=== PATIENT | male | born 1960 | race Caucasian/White ===

== ENCOUNTER 2017-10-25 10:54 | Emergency (ER) ==
[2017-10-25 11:00] VITALS: TEMP 99.1; BMI 29.7
[2017-10-25 11:23] LABS: BASOPHILS # (AUTO) 0.1 K/uL (0-0.2); BASOPHILS % (AUTO) 0.8 % (0.0-3.0); EOSINOPHILS # (AUTO) 0.2 K/ul (0.0-0.7); EOSINOPHILS % (AUTO) 2.1 % (0.0-7.0); HEMATOCRIT 50.4 % (42.0-52.0); HEMOGLOBIN 17.9 g/dl (14.0-18.0); IMMATURE GRANULOCYTE % (AUTO) 0.6 % (0.0-5.0); LYMPHOCYTES # (AUTO) 2.4 K/uL (0.60-3.4); LYMPHOCYTES % (AUTO) 27.6 (10.0-50.0); MEAN CORPUSCULAR HGB CONC 35.5 (31.8-35.4); MEAN CORPUSCULAR VOLUME 90.2 fl (80.0-94.0); MONOCYTES # (AUTO) 0.8 K/uL (0.4-2.0); MONOCYTES % (AUTO) 8.9 (0-10); NEUTROPHILS # (AUTO) 5.2 K/ul (2.0-6.9); PLATELET COUNT 126 10^3/uL (140-440); RED BLOOD COUNT 5.59 10^6/ul (4.70-6.10); WHITE BLOOD COUNT 8.66 K/ul (4.2-10.2)
[2017-10-25 11:38] VITALS: BP 145/74
[2017-10-25 11:38] LABS: PARTIAL THROMBOPLASTIN TIME 24.3 SEC (23.9-40.0); PROTHROMBIN TIME 10.9 SEC (9.3-11.0)
--- NOTE | 2017-10-25 11:44 | CT ---
EXAM: CT head without contrast. HISTORY: Right arm and leg numbness. COMPARISON: None available. TECHNIQUE: Multiple axial images of the brain were obtained from the skull base through the vertex w ithout intravenous contrast. Multiplanar reformats were provided. FINDINGS: There is no intracranial hemorrhage or extraaxial collection. The pantoja-white differentiat ion is maintained without evidence for acute large vascular territory infarction. There are areas of periventricular and subcortical white matter low attenuation. The cortical sulci and basal cisterns are well visualized. There is no hydrocephalus, mass effect, or midline shift. There is near-compl ete opacification of the right maxillary sinus with associated wall thickening. Otherwise, the paran negin sinuses and mastoid air cells are clear. The calvarium is intact. Atherosclerotic calcificatio ns are present. IMPRESSION: 1. No acute intracranial abnormality. 2. Chronic small vessel ischemic changes. 3. Chronic right maxillary sinusitis.
[2017-10-25 11:49] LABS: ALANINE AMINOTRANSFERASE 151 U/L (12-78); ALKALINE PHOSPHATASE 112 U/L (50-136); ANION GAP 16.4; ASPARTATE AMINO TRANSFERASE 87 U/L (15-37); BILIRUBIN,TOTAL 0.5 mg/dL (0.00-1.20); BLOOD UREA NITROGEN 20 mg/dL (7-18); BUN/CREATININE RATIO 24.09; CALCIUM 10.7 mg/dL (8.2-10.2); CARBON DIOXIDE 23 mmol/L (21-32); CHLORIDE 103 mmol/L (98-107); CREATINE KINASE 29 U/L; CREATININE 0.83 mg/dL (0.60-1.10); GLUCOSE 279 mg/dL (70-100); POTASSIUM 4.4 mmol/L (3.5-5.1); SODIUM 138 mmol/L (136-145)
--- NOTE | 2017-10-25 12:22 | ED.PDOC ---
General ED Provider: Dr. NATHALIA THAYER Chief Complaint: Stroke Stated Complaint: stroke Time Seen by Physician: 11:00 (seen with nursing staff) Mode of Arrival: Walk-In Information Source: Patient Exam Limitations: No limitations Primary Care Provider: DEVONTE LOPEZ Nursing and Triage Documentation Reviewed and Agree: Yes (weakness right arm and leg started 1 day ago worse 4 am today) Neurological Complaint Exam - Weakness Complaint/Exam Last Known Well: about 4 am right arm became weal along right leg arm greater than leg Duration: 8 hours Symptoms Are: Still present Timing: Constant (took to asprins each 81 mg) Episodes Lasting: Hours Initial Severity: Moderate Current Severity: Moderate Character: Reports: Weak (right arm and lleg speech and swallowing is preserved ) Aggravating: Reports: None Alleviating: Reports: None Associated Signs and Symptoms: Denies: Nausea, Vomiting, Diaphoresis, Tinnitus, Chest pain, Short of air, Palpitations, Unsteady gait, GI blood loss, Visual changes, Decreased oral intake, Change in medication, Change in diet, OTC meds, Loss of balance Cardiac Risk Factors: Reports: Diabetes CVA Risk Factors: Reports: Diabetes Related Surgical History: Reports: None JVD Present: No Carotid Bruit Present: No Rectal Heme Positive: No Glascow Coma Scale (see protocol): 15 Nystagmus Present: No Gag Reflex Present: Yes Meningeal Signs Positive: No Focal Weakness: Present: RUE, RLE Focal Sensory Loss: Present: None Gait: Abnormal [id number]: Normal Findings Differential Diagnoses: Other (cva) Quality Indicators for Cardiac Chest Pain: EKG in 10min. Quality Indicators for AMI: EKG in 10min. Quality Indicator For Non-Traumatic Chest Pain/Syncope: EKG Performed Review of Systems - Review Of Systems Constitutional: Reports: No symptoms Eyes: Reports: No symptoms Ears, Nose, Mouth, Throat: Reports: No symptoms Respiratory: Reports: No symptoms Cardiac: Reports: No symptoms GI: Reports: No symptoms : Reports: No symptoms Musculoskeletal: Reports: No symptoms Skin: Reports: No symptoms Neurological: Reports: Weakness (right sided upper lower ext) Endocrine: Reports: No symptoms Hematologic/Lymphatic: Reports: No symptoms All Other Systems: Reviewed and Negative Past Medical History - Past Medical History Previously Healthy: Yes Endocrine: Reports: None Cardiovascular: Reports: None Respiratory: Reports: None Hematological: Reports: None Gastrointestinal: Reports: None Genitourinary: Reports: None Neuro/Psych: Reports: None Musculoskeletal: Reports: None Cancer: Reports: None - Surgical History General Surgical History: Reports: Unknown - Family History Family History: Reports: Unknown - Social History Smoking Status: Current every day smoker Hx Substance Use: No Alcohol Screening: Occasionally - Immunizations Tetanus Shot up to Date: No Physical Exam - Physical Exam Appearance: Well-appearing, No pain distress, Well-nourished Eyes: MARIAM, EOMI, Conjunctiva clear ENT: Ears normal, Nose normal, Oropharynx normal Respiratory: Airway patent, Breath sounds clear, Breath sounds equal, Respirations nonlabored Cardiovascular: RRR, Pulses normal, No rub, No murmur GI/: Soft, Nontender, No masses, Bowel sounds normal, No Organomegaly Musculoskeletal: Limited ROM (arm and leg with arm on right side much weaker ) Skin: Warm, Dry, Normal color Neurological: Sensation intact, Motor intact, Reflexes intact, Cranial nerves intact, Alert, Oriented Psychiatric: Affect appropriate, Mood appropriate Interpretation - Radiology Interpretation Radiology Interpretation By: Radiologist Radiology Results: No acute changes Physician Notification - Case Discussed Physician Notified: pmd Time of Notification: 12:26 (transfer and obtain neuro consult now) Critical Care Note - Critical Care Note Total Time (mins): 0 Course - Course Hematology/Chemistry: 10/25/17 11:15 10/25/17 11:15 Orders, Labs, Meds: Lab Review 10/25/17 10/25/17 10/25/17 11:15 11:15 11:15 WBC 8.66 RBC 5.59 Hgb 17.9 Hct 50.4 MCV 90.2 MCH 32.0 H MCHC 35.5 H RDW Coeff of Jozef 12.7 Plt Count 126 L Immature Gran % (Auto) 0.6 Neut % (Auto) 60.0 Lymph % (Auto) 27.6 [place] % (Auto) 8.9 Eos % (Auto) 2.1 Baso % (Auto) 0.8 Immature Gran # (Auto) 0.1 Neut # 5.2 Lymph # 2.4 [place] # 0.8 Eos # 0.2 Baso # 0.1 PT 10.9 INR 1.07 APTT 24.3 Sodium 138 Potassium 4.4 Chloride 103 Carbon Dioxide 23 Anion Gap 16.4 BUN 20 H Creatinine 0.83 Estimated GFR (MDRD) 96.00 BUN/Creatinine Ratio 24.09 Glucose 279 H Calcium 10.7 H Total Bilirubin 0.5 AST 87 H ALT 151 H Alkaline Phosphatase 112 Total Creatine Kinase 29 Troponin I < 0.0100 Total Protein 9.0 H Albumin 4.0 Globulin 5.0 Albumin/Globulin Ratio 0.80 Orders Category Date Time Status EKG-(ED ONLY) Stat CARDIO 10/25/17 11:14 Ordered ED IV/MEDIPORT/POWERPORT .ONCE EMERGENCY 10/25/17 11:14 Active CBC W/ AUTO DIFF Stat LAB 10/25/17 11:15 Completed COMPREHENSIVE METABOLIC PANEL Stat LAB 10/25/17 11:15 Completed CREATINE KINASE Stat LAB 10/25/17 11:15 Completed PARTIAL THROMBOPLASTIN TIME Stat LAB 10/25/17 11:15 Completed PT WITH INR Stat LAB 10/25/17 11:15 Completed TROPONIN I Stat LAB 10/25/17 11:15 Completed 0.9 % Sodium Chloride [Saline Flush] MEDS 10/25/17 11:14 Active 1 syr IVF PRN PRN CT HEAD W/O CONTRAST Stat RADS 10/25/17 11:14 Completed Medications Generic Name Dose Route Start Last Admin Trade Name Freq PRN Reason Stop Dose Admin Sodium Chloride 1 syr 10/25/17 11:14 Saline Flush IVF PRN PRN To flush IV Vital Signs: Temp Pulse Resp BP Pulse Ox 10/25/17 11:37 73 16 145/74 H 95 10/25/17 10:55 99.1 F 85 20 189/96 H 98 Departure - Departure Time of Disposition: 13:00 Disposition: HOME SELF-CARE Discharge Problem: Cerebrovascular accident (CVA) Qualifiers: CVA mechanism: unspecified Qualified Code(s): I63.9 - Cerebral infarction, unspecified Instructions: Ischemic Stroke (GEN) Condition: Good Pt referred to PMD for follow-up: Yes Additional Instructions: Please call your Family Physician as soon as possible to schedule a follow-up appointment.Please follow-up with Dr. Yen in 1-5 days. Allergies/Adverse Reactions: Allergies No Known Allergies Allergy (Verified 10/25/17 11:02) Home Medications: Ambulatory Orders Hydrocodone/Acetaminophen [[place] 10-325 Tablet] 1 each PO Q6HR PRN #20 tablet Metformin HCl [Glucophage] 500 mg PO BIDWM 05/06/16
[2017-10-25] MEDS ORDERED: THIAMINE 100 MG in SODIUM CHLORIDE 50 ML IV STA (12:46)
[2017-10-25] MEDS ORDERED: THIAMINE ONE (13:26)
== END 2017-10-25 14:12 | disposition short-term general hospital (02) ==
LOC: ED 10:54
DX: I63.9 Cerebral infarction, unspecified (principal); E11.9 Type 2 diabetes mellitus without complications; F17.210 Nicotine dependence, cigarettes, uncomplicated
CPT/HCPCS: 36415; 80053; 82550; 84484; 85025; 85610; 85730; 93005; 93010; 96365; 99285

== ENCOUNTER 2017-10-25 14:23 | Outpatient (CLI) ==
[2017-10-25 11:00] VITALS: BMI 29.7
== END 2017-10-25 14:24 | disposition short-term general hospital (02) ==
LOC: AMBL 14:23
PROVIDERS: ATTEND Internal Medicine
DX: R53.1 Weakness (principal)